=== PATIENT | male | born 1995 | race Caucasian/White ===

== ENCOUNTER 2019-01-28 18:20 | Outpatient (CLI) | payer OTHER ==
--- NOTE | 2019-01-29 04:09 | MRI Report ---
Reason: LT KNEE PAIN Procedure Date: 01/28/2019 Accession Number: [id number] / [id number] Procedure: MRI - Knee LT W/O CPT Code: FULL RESULT: EXAM: LEFT KNEE MRI WITHOUT CONTRAST EXAM DATE: 01/28/2019 07:05 PM. CLINICAL HISTORY: LT KNEE PAIN. COMPARISON: None. TECHNIQUE: Multiplanar, multisequence T1-weighted and fluid-sensitive sequences of the knee without contrast. Other: None. FINDINGS: Bones: No fractures or subluxations. No marrow edema. No bone lesions. Mild osteophyte formation at the margins of the tibial plateau and medial and lateral femoral condyles. Articular Cartilage: Unremarkable. Medial Meniscus: Complex tear extending from the anterior to posterior horns. Lateral Meniscus: Diskoid meniscus with radial tear at the junction of the anterolateral horn and body. Cruciate Ligaments: The anterior and posterior cruciate ligaments are intact. Collateral Ligaments: The medial collateral and lateral collateral ligamentous structures are intact. Tendons: The quadriceps, patellar, semimembranosus, and popliteus tendons are unremarkable. Musculature: No edema or fatty atrophy. Other: Small effusion with synovitis. No popliteal cyst. No loose bodies. The medial and lateral retinacula are intact. The subcutaneous tissues and fat pads are unremarkable. IMPRESSION: 1. Complex tear of the medial meniscus extending from the anterior to posterior horns. 2. Diskoid lateral meniscus with radial tear at the junction of the anterolateral horn and body. 3. Small effusion with synovitis. 3. Mild osteoarthritis with marginal osteophyte formation in the medial and lateral compartments. RADIA
== END 2019-01-28 18:21 | disposition home or self-care (01) ==
LOC: DI 18:20
PROVIDERS: ATTEND Student in an Organized Health Care Education/Training Program
DX: S83.232A Complex tear of medial meniscus, current injury, left knee, initial encounter (principal); S83.282A Other tear of lateral meniscus, current injury, left knee, initial encounter; M25.462 Effusion, left knee; M17.12 Unilateral primary osteoarthritis, left knee; M65.9 Synovitis and tenosynovitis, unspecified

== ENCOUNTER 2019-04-22 08:41 | Day surgery (SDC) | payer OTHER ==
[~2019-04-22 08:41] MED LIST: BUPIVACAINE 0.5% PF 30 ML VIAL ONE; CEFAZOLIN SODIUM IN 0.9 % NACL 2 GM/100 ML BAG IV ONE; EPINEPHrine 1 MG/ML AMP ONE
[2019-04-22] MEDS ORDERED: LACTATED RINGERS 1,000 ML IV ONE (09:11)
--- NOTE | 2019-04-22 09:17 | ANESTHESIA ---
Pre-Anesthesia VS, & Labs - Diagnosis left knee meniscus tear - Procedure meniscus repair left knee Vital Signs: Temp Pulse Resp BP Pulse Ox 36.6 C 65 18 125/91 H 97 04/22/19 08:54 04/22/19 08:54 04/22/19 08:54 04/22/19 08:54 04/22/19 08:54 Height 5 ft 8 in Weight (kg) 79.38 kg Home Medications and Allergies Home Medications: Ambulatory Orders Multivitamin [One Daily Multivitamin] 1 each PO 04/11/19 Marion-3/Dha/Epa/Fish Oil [Fish Oil 1,000 mg Softgel] 1 each PO 04/11/19 Multivitamin [One Daily Multivitamin] 1 each PO 04/11/19 Marion-3/Dha/Epa/Fish Oil [Fish Oil 1,000 mg Softgel] 1 each PO 04/11/19 Allergies/Adverse Reactions: Allergies Allergy/AdvReac Type Severity Reaction Status Date / Time No Known Drug Allergies Allergy Verified 04/11/19 10:23 Anes History & Medical History - Anesthetic History Anesthesia Complications: reports: No previous complications Family history of Anesthesia Complications: Denies Family history of Malignant Hyperthermia: Denies - Medical History Cardiovascular: reports: None Pulmonary: reports: None Gastrointestinal: reports: None Urinary: reports: None Neuro: reports: None Musculoskeletal: reports: None, Other Endocrine/Autoimmune: reports: None Blood Disorders: reports: None Skin: reports: None Smoking Status: Never smoker Psychosocial: reports: Alcohol ("rarely") Exam General: Alert, Oriented x3, Cooperative, No acute distress Dental: WNL Mouth Openin Fingerbreadth Neck Mobility: Normal Mallampati classification: I Thyromental Distance: 4-6 cm Respiratory: Lungs clear, Normal breath sounds, No respiratory distress, No accessory muscle use Cardiovascular: Regular rate, Normal S1, Normal S2, No murmurs Abdomen: Normal bowel sounds, Soft, No tenderness, No hepatospenomegaly, No masses Extremities: No clubbing, No cyanosis, No edema, Normal pulses, No tenderness/swelling Neurological: Normal gait, Normal speech, Strength at 5/5 X4 ext, Normal tone, Sensation intact, Cranial nerves 3-12 NL, Reflexes 2+ Mental/Cognitive Status: Alert/Oriented X3, Normal for patient Cognitive Status: Within normal limits Plan Anesthesia Type: General Consent for Procedure(s) Verified and Reviewed: Yes Code Status: Attempt Resuscitation ASA classification: 1-Healthy patient Is this case an emergency?: No
[2019-04-22] MEDS ORDERED: ONDANSETRON 4 MG/2 ML VIAL IVP ONE (09:45)
[2019-04-22] MEDS ORDERED: DEXAMETHASONE 4 MG/ML VIAL IVP ONE (09:45)
[2019-04-22] MEDS ORDERED: LIDOCAINE-MPF 2% 5 ML VIAL IM ONE (09:45)
[2019-04-22] MEDS ORDERED: MIDAZOLAM 2 MG/2 ML VIAL IVP ONE (09:45)
[2019-04-22] MEDS ORDERED: fentaNYL 100 MCG/2 ML VIAL IVP ONE (09:45)
[2019-04-22] MEDS ORDERED: ACETAMINOPHEN 1,000 MG/100 ML 100 ML IV ONE (09:45)
[2019-04-22] MEDS ORDERED: KETOROLAC 30 MG/ML VIAL IVP ONE (09:45)
[2019-04-22] MEDS ORDERED: PROPOFOL 200 MG/20 ML VIAL IVP ONE (09:45)
[2019-04-22] MEDS ORDERED: BUPIVACAINE 0.25% PF 30 ML VIAL SUBQ ONE (11:09)
[2019-04-22] MEDS ORDERED: ONDANSETRON 4 MG/2 ML VIAL IVP PRN (11:19)
[2019-04-22] MEDS ORDERED: oxyCODONE 5 MG TABLET PO PRN (11:19)
--- NOTE | 2019-04-22 11:31 | OPERATIVE REPORT ---
Operative Report - Other Other Information/Narrative: Date of Surgery: 22 April 2019 Pre-Op Diagnosis: Left medial meniscus tear. Left lateral meniscus tear Procedure: Arthroscopic excision of large bucket-handle tear of medial meniscus. Debridement of radial lateral meniscus tear Postop Diagnosis: Same Primary Surgeon: Keshav Christiansen Secondary Surgeon: None Complications: None Tourniquet Time: 60 minutes EBL: 5 cc Indication For Surgery: 23-year-old male with 1 year of medial and lateral sided knee pain with mechanical sensations and challenges with deep knee bends and straightening the knee. MRI showed medial and lateral meniscal tears. He did not respond to conservative measures the risks, benefits, and alternatives were discussed. Risks include pain, bleeding, infection, damage to nearby structures and cartilage, lack of symptom relief, need for further surgery, DVT, PE, stroke, and . Written consent was obtained. Examination Under Anesthesia: ROM equal to the contralateral side. Stable dial at 30 & 90 degrees. Stable to varus and valgus stressing at 0 & 30 degrees. Normal [place]. Normal Pivot shift. Slight mechanical sensation medially when performing range of motion Arthroscopic Findings: Loose bodies -none Synovium -exuberant both medially and laterally with hypertrophic fat pad and significant ligamentum mucosa Patella cartilage -normal Trochlear cartilage -normal Medial femoral condyle cartilage -normal Medial tibial plateau cartilage -normal Medial meniscus -large bucket-handle tear that was flipped into the notch. A medial meniscus had formed from the rim that remained. The torn medial meniscus tissue was of poor quality and unlikely to heal therefore it was removed Anterior cruciate ligament -normal Posterior cruciate ligament -normal Lateral femoral condyle cartilage -normal Lateral tibial plateau cartilage -normal Lateral meniscus -radial tear of the body was seen. This was debrided with a shaver and biters to create a smooth rim. The lateral meniscus root was intact and he did not have a Wrisberg dominant meniscoid. Procedure in Detail: The patient was met in the pre-operative hold area on the day of the procedure. The operative extremity was signed and questions were answered. The patient was brought to the operating room and a general anesthetic was administered. Supine position was used and bony prominences were padded. An examination under anesthesia was performed. Standard prepping and draping was performed. A time out confirmed patient identification, laterality, procedure, allergies, antibiotics, and images. An Esmarch was used to exsanguinate the limb and the tourniquet was elevated to 250 mmHg. A standard diagnostic arthroscopy of the knee was performed through anterolateral and anteromedial portal sites. The anteromedial portal was created under direct visualization after localizing with a spinal needle. The findings can be found above. I then proceeded to reduce the bucket-handle medial meniscus tear back into place. Once reduced the complicated nature of the tear was fully appreciated and the chronicity made an attempted repair contraindicated. I therefore used biters and baldev to remove the unstable fragment. The medial meniscus root remained intact. A small rim of medial meniscus tissue remained that had already been contoured by the medial femoral condyle. I then used the shaver to remove all exuberant synovium to improve my ability to move and see. I then moved into the lateral compartment and found there to be a small radial tear of the lateral meniscus. A shaver and biters were used to remove the unstable portions of meniscus and to smooth the edges. I then went into the suprapatellar pouch and found there to be some scarring from medial to lateral and this was excised. Final images were taken and all arthroscopic fluid and instruments were removed from the knee. The incisions were closed with buried monocryl sutures. Steri strips were applied. 20 cc of 0.5% Marcaine without epinephrine was injected near the portal sites. A sterile dressing and compression stocking was placed. The patient was awakened and transferred to recovery in stable condition.
[2019-04-22] MEDS: fentaNYL 100 MCG/2 ML VIAL ONE ×2 (11:40→11:51)
[2019-04-22] MEDS ORDERED: oxyCODONE 5 MG TABLET ONE (12:20)
[2019-04-22 14:17] VITALS: BP 134/80
== END 2019-04-22 08:42 | disposition home or self-care (01) ==
LOC: SDS 08:41
PROVIDERS: ATTEND Orthopaedic Surgery
PROC: 0SBD4ZZ Excision of Left Knee Joint, Percutaneous Endoscopic Approach (ICD-10-PCS; 2019-04-22)
PROC: 0SBD4ZZ Excision of Left Knee Joint, Percutaneous Endoscopic Approach (ICD-10-PCS; principal; 2019-04-22 10:00)
DX: S83.212A Bucket-handle tear of medial meniscus, current injury, left knee, initial encounter (principal); S83.282A Other tear of lateral meniscus, current injury, left knee, initial encounter